=== PATIENT | female | born 1955 | race African-American/Black ===

== ENCOUNTER 2019-11-02 05:28 | Day surgery (SDC) | payer MEDICARE, OTHER ==
[~2019-11-02 05:28] MED LIST: ACETAMINOPHEN 325 MG TABLET PO PRN; CEFAZOLIN SODIUM 2 GM in DEXTROSE 5%-WATER 100 ML IV PRN; CELECOXIB 200 MG CAPSULE PO PRN; GABAPENTIN 100 MG CAPSULE PO PRN; LACTATED RINGERS 1000 ML IV PRN; LIDOCAINE 0.5% INJ-PF (5 MG/ML) 50 ML SDV SUBCUT PRN; ONDANSETRON HCL INJ/PF 4 MG/2 ML SDV IV PRN; OXYCODONE HCL SR 10 MG TABLET PO PRN; SCOPOLAMINE HYDROBROMIDE 1.5 MG PATCH.TD72 TD PRN; TRAMADOL HCL 50 MG TABLET PO PRN; TRANEXAMIC ACID INJ/PF 1,000 MG/10 ML SDV IV PRN; VANCOMYCIN HCL 1,000 MG in DEXTROSE 5%-WATER 250 ML IV PRN
[2019-11-02] MEDS ORDERED: CELECOXIB 200 MG CAPSULE ONE (05:29)
[2019-11-02] MEDS ORDERED: ACETAMINOPHEN 325 MG TABLET ONE (05:29)
[2019-11-02] MEDS ORDERED: GABAPENTIN 100 MG CAPSULE ONE (05:30)
[2019-11-02] MEDS ORDERED: ONDANSETRON HCL INJ/PF 4 MG/2 ML SDV ONE ×2 (05:30→07:03)
[2019-11-02] MEDS ORDERED: TRAMADOL HCL 50 MG TABLET ONE (05:30)
[2019-11-02] MEDS ORDERED: OXYCODONE HCL SR 10 MG TABLET PO ONE (05:30)
[2019-11-02] MEDS ORDERED: VANCOMYCIN HCL INJ 1000 MG VIAL ONE (06:49)
[2019-11-02] MEDS ORDERED: BUPIVACAINE HCL 0.25 % INJ/PF (2.5 MG/1 ML) 30 ML VIAL ONE (06:49)
[2019-11-02] MEDS ORDERED: LIDOCAINE 1% INJ-PF (10 MG/ML) 30 ML SDV ONE (06:49)
[2019-11-02] MEDS ORDERED: KETOROLAC TROMETHAMINE INJ/PF 30 MG/1 ML SDV ONE (06:49)
[2019-11-02] MEDS ORDERED: LIDOCAINE 2% INJ (20 MG/ML) 20 ML MDV ONE (06:59)
[2019-11-02] MEDS ORDERED: MIDAZOLAM 2 MG/2 ML INJ ONE (07:03)
[2019-11-02] MEDS ORDERED: PROPOFOL INJ 200 MG/20 ML VIAL IV ONE ×2 (07:03→09:06)
[2019-11-02] MEDS ORDERED: FENTANYL CITRATE INJ/PF 100 MCG/2 ML AMPUL ONE (07:03)
[2019-11-02] MEDS ORDERED: DEXAMETHASONE SOD PHOSPHATE INJ 4 MG/1 ML VIAL ONE (07:03)
[2019-11-02] MEDS ORDERED: SCOPOLAMINE HYDROBROMIDE 1.5 MG PATCH.TD72 ONE (07:09)
[2019-11-02] MEDS ORDERED: MORPHINE SULFATE 10 MG/ML INJ IV PRN ×2 (08:19→09:58)
[2019-11-02] MEDS ORDERED: FENTANYL CITRATE INJ/PF 100 MCG/2 ML AMPUL IV PRN ×3 (08:19)
[2019-11-02] MEDS ORDERED: DIPHENHYDRAMINE HCL 50 MG/ML VIAL IV PRN (08:19)
[2019-11-02] MEDS ORDERED: MEPERIDINE HCL/PF INJ 25 MG/1 ML DISP.SYRIN IV PRN (08:19)
[2019-11-02] MEDS ORDERED: ONDANSETRON HCL INJ/PF 4 MG/2 ML SDV IV PRN (08:19)
--- NOTE | 2019-11-02 09:30 | Operative Report ---
Operative Report DATE OF SURGERY: 11/02/19 PREOPERATIVE DIAGNOSIS: Severe left hip primary osteoarthritis POSTOPERATIVE DIAGNOSIS: Severe left hip primary osteoarthritis OPERATION: Left total hip arthroplasty SURGEON: PHIL EAGLE JR ANESTHESIA: Spinal COMPLICATIONS: None ESTIMATED BLOOD LOSS: 100 PROCEDURE: Implants: [employer] Taperloc micro-plasty size 10 femoral stem with lateral offset, a 50 mm G7 cup, and a 32 mm standard liner, a standard neck length 32 mm ceramic head BRIEF HISTORY: 63 year old female with severe degenerative arthritis of left hip, which has failed conservative treatment and has elected for a total hip arthroplasty. Risks include but are not limited to bleeding, infection, anesthesia, , injury to nerve or vessel, pain, scar, leg length inequality, dislocation, future surgery, and blood clots. Patient read through the pre-op counseling form and signed and solicited for surgery on their left hip. OPERATIVE PROCEDURE: Patient was brought to the operating room on and underwent spinal anesthesia. 2 grams of Ancef and 1 g of vancomycin was given. After proper anesthesia was obtained, patient was positioned, padded, prepped, and draped in the usual sterile fashion on the operating room table. Appropriate time out was performed. An anterior approach to the hip was undertaken with meticulous hemostasis through the deep interval. A capsulectomy was performed followed by exposure of the femoral neck. The femoral neck was cut in line with the femoral broach and the femoral head was removed. The acetabulum was then exposed with three retractors in an atraumatic fashion. Soft tissue and osteophytes were removed. Medialization reaming was performed followed by anatomic reaming up to accept a 50 mm acetabulum. Wound was irrigated with dilute betadyne solution and the 50 mm acetabulum was impacted into correct position and stability checked by manipulating the impaction handle which rocked the pelvis. A standard liner was impacted into the shell with good stability. Potential impinging osteophytes were removed. Attention was then directed toward the femur, which was exposed with two retractors in an atraumatic fashion. A bone hook was placed to carefully perform releases along the superior capsule until the femur was safely delivered through the wound. A boxing trainer was utilized followed by lateralization rasping and then broaching up to accept a 10 femur. With a standard offset neck and a standard head, stability was good in flexion and extension with equal leg yves gths. There was a slight amount of increased shuck and the decision was made to proceed with a lateral offset stem. The real lateral offset femur was impacted into a copiously irrigated femoral canal. A standard 0 mm 32 ceramic head was impacted on a clean dry femoral taper. The hip was irrigated and reduced, further irrigation with antibiotic solution, betadine solution, then antibiotic solution. Bleeders were coagulated with bovie cautery. The fascia was then closed with number 2 Stratofix; the subcutaneous tissue closed with interrupted inverted 2-0 monocryl then running 3-0 monocryl subcuticular. Dermabond skin glue was applied followed by a silver dressing. All needle sponge and instrument counts were correct. Patient was awakened from sedation anesthesia and taken to recovery room in good condition. Thank you, Phil Eagle, DO
[2019-11-02] MEDS: FENTANYL CITRATE INJ/PF 100 MCG/2 ML AMPUL ONE ×2 (09:35→09:40)
[2019-11-02] MEDS ORDERED: TRANEXAMIC ACID INJ/PF 1,000 MG/10 ML SDV ONE (09:54)
[2019-11-02] MEDS ORDERED: OXYCODONE HCL IR 5 MG TABLET PO PRN ×2 (09:57→09:58)
[2019-11-02] MEDS ORDERED: TRAMADOL HCL 50 MG TABLET PO PRN (09:59)
[2019-11-02] MEDS ORDERED: PANTOPRAZOLE SODIUM 20 MG TABLET.DR PO PRN (10:18)
[2019-11-02] MEDS ORDERED: DIPHENHYDRAMINE HCL 25 MG CAPSULE PO PRN (10:20)
[2019-11-02] MEDS ORDERED: ZOLPIDEM TARTRATE 5 MG TABLET PO PRN (10:20)
[2019-11-02] MEDS ORDERED: DOCUSATE SODIUM 100 MG CAPSULE PO PRN (10:23)
[2019-11-02] MEDS ORDERED: NORMAL SALINE 1000 ML 1,000 ML IV PRN (10:23)
[2019-11-02] MEDS ORDERED: ONDANSETRON 4 MG TAB.RAPDIS PO PRN (10:24)
--- NOTE | 2019-11-02 10:24 | RADIOLOGY REPORT (SQ) ---
EXAM DESCRIPTION: HIP LEFT AP/LATERAL COMPLETED DATE/TIME: 11/02/2019 10:10 am REASON FOR STUDY: post op M16.12 UNILATERAL PRIMARY OSTEOARTHRITIS, LEFT HIP COMPARISON: None. NUMBER OF VIEWS: Two views. TECHNIQUE: AP pelvis and additional frog-leg view of the left hip. LIMITATIONS: None. FINDINGS: MINERALIZATION: Normal. LEFT HIP: Status post left FAUSTO. The hardware is in anatomic alignment. There is no periprosthetic f racture. RIGHT HIP: Osteoarthrosis of the femoroacetabular joint. There is no fracture or dislocation. PUBIS AND ISCHIUM: The ilioischial and iliopectineal lines are intact. There is no diastasis of the pubic symphysis. PELVIS: No fracture. SACRUM: The sacrum is obscured by overlying bowel. LOWER LUMBAR SPINE: Limited evaluation. SOFT TISSUES: Subcutaneous emphysema lateral to the left femur. OTHER: No other findings. IMPRESSION: Status post left FAUSTO with expected immediate postoperative findings. TECHNICAL DOCUMENTATION: JOB ID: [id number] 2010 [employer]- All Rights Reserved Reading location - IP/workstation name: [email or web address]
[2019-11-02] MEDS: KETOROLAC TROMETHAMINE INJ/PF 30 MG/1 ML SDV IV SCH ×3 (14:20→21:03)
[2019-11-02] MEDS: ACETAMINOPHEN 325 MG TABLET PO SCH ×2 (14:42→21:22)
[2019-11-02] MEDS: CEFAZOLIN SODIUM 2 GM in DEXTROSE 5%-WATER 100 ML IV SCH ×2 (14:42→21:02)
--- NOTE | 2019-11-02 15:44 | RADIOLOGY REPORT (SQ) ---
EXAM DESCRIPTION: NO CHG FLUORO; HIP IN OPERATING RM COMPLETED DATE/TIME: 11/02/2019 3:02 pm; 11/02/2019 3:03 pm REASON FOR STUDY: LEFT HIP TOTAL ARTHROPLASTY ASSISTED WITH FLUORO IN OR COMPARISON: None. FLUOROSCOPY TIME: No document fluoro time 2 Images saved to PACS LIMITATIONS: None. PROCEDURE: Left hip arthroplasty. FINDINGS: Images from fluoro document left hip arthroplasty in progress. IMPRESSION: Left hip arthroplasty in progress. Refer to operative note for further information. COMMENT: PQRS 6045F: Fluoroscopy time of the procedure is documented in the report. TECHNICAL DOCUMENTATION: JOB ID: [id number] 2010 [employer]- All Rights Reserved Reading location - IP/workstation name: [email or web address]
--- NOTE | 2019-11-02 15:44 | RADIOLOGY REPORT (SQ) ---
EXAM DESCRIPTION: NO CHG FLUORO; HIP IN OPERATING RM COMPLETED DATE/TIME: 11/02/2019 3:02 pm; 11/02/2019 3:03 pm REASON FOR STUDY: LEFT HIP TOTAL ARTHROPLASTY ASSISTED WITH FLUORO IN OR COMPARISON: None. FLUOROSCOPY TIME: No document fluoro time 2 Images saved to PACS LIMITATIONS: None. PROCEDURE: Left hip arthroplasty. FINDINGS: Images from fluoro document left hip arthroplasty in progress. IMPRESSION: Left hip arthroplasty in progress. Refer to operative note for further information. COMMENT: PQRS 6045F: Fluoroscopy time of the procedure is documented in the report. TECHNICAL DOCUMENTATION: JOB ID: [id number] 2010 [employer]- All Rights Reserved Reading location - IP/workstation name: [email or web address]
[2019-11-02] MEDS ORDERED: ALBUTEROL SULFATE 0.042% NEB (1.25 MG/3 ML) AMPUL NEB PRN (15:55)
[2019-11-02] MEDS ORDERED: (PENDING PHARMACY ID) (Levalbuterol Tartrate [Xopenex Hfa] 2 PUFF) IN PRN (15:55)
[2019-11-02] MEDS: GABAPENTIN 100 MG CAPSULE PO SCH (17:16)
[2019-11-02] MEDS ORDERED: ALBUTEROL SULFATE HFA (90 MCG/PUFF) 8 GM MDI IH PRN (21:30)
[2019-11-03] MEDS: ACETAMINOPHEN 325 MG TABLET PO SCH (06:14)
[2019-11-03] MEDS: KETOROLAC TROMETHAMINE INJ/PF 30 MG/1 ML SDV IV SCH (06:50)
--- NOTE | 2019-11-03 07:39 | PDOC PROGRESS REPORT ---
Subjective Progress Note for:: 11/03/19 Subjective:: The patient is doing well this AM. Pain is present but not out of proportion and well controlled on their current medications. There are no new symptoms or overnight events. Overall they are felling well without complaints. They deny chest pain, shortness of breath or motor or sensory loss. Reason For Visit: M16.12 UNILATERAL PRIMARY OSTEOAR Physical Exam Vital Signs: Temp Pulse Resp BP Pulse Ox 97.4 F 68 18 115/72 100 11/03/19 03:49 11/03/19 03:49 11/03/19 03:49 11/03/19 03:49 11/03/19 03:49 Intake & Output 11/02/19 11/03/19 11/04/19 06:59 06:59 06:59 Intake Total 0 2520 Output Total 800 Balance 0 1720 Weight 109.32 kg 114.8 kg Physical Exam: No acute distress alert and orient x3 Left lower extremity -Pulses 2+ distally -Compartments soft -Wound clean dry and intact no drainage, appropriate appearance for postop day 1 -Sensation grossly intact to L3-4-5 S1 -Motor grossly intact to EHL TA gastroc and quad - Able to perform quad extension and elevate heel off of bed. Results Laboratory Results: 11/02/19 06:55 11/02/19 06:55 Blood Type A POSITIVE Antibody Screen NEGATIVE Impressions: Fluoroscopy 11/02/19 00:00 IMPRESSION: Left hip arthroplasty in progress. Refer to operative note for further information. Hip X-Ray 11/02/19 00:00 IMPRESSION: Left hip arthroplasty in progress. Refer to operative note for further information. Assessment & Plan - Diagnosis (1) History of total left hip arthroplasty Is this a current diagnosis for this admission?: Yes Plan: - 2 doses of Ancef postoperatively q 8 hours to complete 24 hours perioperatively -Weightbearing as tolerated, no precautions, encourage out of bed CINDY for ADL training - PT/OT - Keep knee extended in bed, rolled towel under the ankle to obtain full extension -aspirin 325 daily for DVT prophylaxis for 6 weeks -multimodal pain management to avoid excessive narcotics, including gabapentin, tramadol, Toradol, acetaminophen. -Dressing should not be removed for 7 to 10 days until seen in the office -May shower with the dressing intact, if it starts to come off she should not get the incision wet. -I would like to follow the patient my office within the next 7 to 10 days at [address] [place] [address]. in [place] office #: [phone] - Time Time Spent with patient: Less than 15 minutes
[2019-11-03] MEDS ORDERED: CHLORTHALIDONE 25 MG TABLET PO SCH (08:00)
[2019-11-03 08:07] VITALS: BP 111/62
[2019-11-03] MEDS ORDERED: AMLODIPINE BESYLATE 5 MG TABLET PO SCH (10:00)
[2019-11-03] MEDS ORDERED: POLYETHYLENE GLYCOL 3350 POWDER 17 GM/1 PACKET PO SCH (10:00)
[2019-11-03] MEDS ORDERED: VITAMIN E (DL, ACETATE) 400 UNIT CAPSULE PO SCH (10:00)
[2019-11-03] MEDS ORDERED: LORATADINE 10 MG TABLET PO SCH (10:00)
[2019-11-03] MEDS ORDERED: ASPIRIN 325 MG TABLET, ENT COATED PO SCH (10:00)
[2019-11-03] MEDS ORDERED: CHOLECALCIFEROL (D3) 1,000 UNIT (25 MCG) TABLET PO SCH (10:00)
[2019-11-03] MEDS ORDERED: (PENDING PHARMACY ID) (Vitamin E [Vitamin E] 400 UNIT) PO SCH (10:00)
[2019-11-03] MEDS ORDERED: LISINOPRIL 10 MG TABLET PO SCH (10:00)
[2019-11-03] MEDS ORDERED: (PENDING PHARMACY ID) (Lisinopril [Zestril] 40 MG) PO SCH (10:00)
[2019-11-03] MEDS ORDERED: (PENDING PHARMACY ID) (Cholecalciferol (Vitamin D3) [Vitamin D3] 2,000 UNIT) PO SCH (10:00)
[2019-11-03] MEDS ORDERED: (PENDING PHARMACY ID) (Fluticasone Propionate [Flovent Diskus] 1 SPRAY) IH SCH (10:00)
[2019-11-03] MEDS ORDERED: METHOCARBAMOL 500 MG TABLET PO SCH (10:00)
[2019-11-03] MEDS: GABAPENTIN 100 MG CAPSULE PO SCH (10:35)
[2019-11-04] MEDS ORDERED: CELECOXIB 200 MG CAPSULE PO SCH (10:00)
--- NOTE | 2019-11-08 15:08 | PDOC DISCHARGE SUMMARY ---
Impression - Admit/DC Date/PCP Discharge Date: 11/03/19 - Discharge Diagnosis (1) History of total left hip arthroplasty Is this a current diagnosis for this admission?: Yes - Assessment Summary: Ms. Bhatt is a very pleasant 83-year-old male who presented to my clinic with chronic left pain that is been going on for over a year. After thorough work-up and attempts at conservative treatment including activity modification and [id number] pain medication, they were having severe difficulty with ambulation and was over the counter pain medication for daily activity. They found the pain debilitating and decreasing thier quality of life as they were unable to perform activities of daily living such as ambulating short distances and getting in and out of the car. After a thorough work-up including x-rays that demonstrated joint space narrowing, vjmu-va-reue contact, subchondral sclerosis, and osteophyte formation as well as discussing risks and benefits and other treatment options, the patient elected to proceed with a left total hip arthroplasty. They were brought to the operating room on 11/02/2019 and underwent a left total hip arthroplasty and tolerated procedure very well with out complication. They were then admitted to the hospital floor for postoperative medical management, monitoring, and pain control. On postoperative day #1 they were ambulating well with physical therapy, to the degree that they approved them for discharge home. They were discharged home on 11/03/2019. They had no acute events or complications over the course of their stay. All detailed instructions and prescriptions were provided to the patient prior to admission on the year prior office visit. - Additional Information Resuscitation Status: Full Code Discharge Diet: As Tolerated, Diabetic Discharge Activity: Activity As Tolerated, No Driving, Keep Legs Elevated, No Lifting/Push/Pulling, Slowly Increase Activity, No tub bath, Walk Frequently Referrals: SANDY EAGLE JR, DO [ACTIVE PROVISIONAL STAFF] - 11/13/19 1:25 pm Home Medications: Albuterol Sulfate [Ventolin 0.042% Neb 1.25 mg/3 mL Ampul] 3 ml IN Q8HP PRN 10/30/19 Amlodipine Besylate [Norvasc 5 mg Tablet] 5 mg PO DAILY 10/30/19 Chlorthalidone [Hygroton 25 mg Tablet] 25 mg PO QAM 10/30/19 Cholecalciferol (Vitamin D3) [Vitamin D3] 2,000 unit PO DAILY 10/30/19 Clotrimazole/Betamethasone Dip [Clotrimazole-Betamethasone Lot] 1 dose TOP PRN PRN 10/30/19 Colchicine 0.6 mg PO BIDP PRN 10/30/19 Famotidine [Pepcid] 20 mg PO BIDP PRN 10/30/19 Fluticasone Propionate [Flovent Diskus] 1 inh PO QHS 10/30/19 Levalbuterol Tartrate [Xopenex Hfa] 2 puff IN Q6HP PRN 10/30/19 Lisinopril [Zestril] 40 mg PO DAILY 10/30/19 Loratadine [Claritin] 10 mg PO DAILY 10/30/19 Methocarbamol 500 mg PO DAILY 10/30/19 Tramadol HCl [Ultram] 1 - 2 tab PO TIDP PRN 10/30/19 Vitamin E 400 unit PO DAILY 10/30/19 Acetaminophen [Tylenol 325 mg Tablet] 975 mg PO Q8 tablet 11/03/19 Aspirin [Ecotrin 325 mg EC Tablet] 325 mg PO DAILY tabec 11/03/19 Celecoxib [Celebrex 200 mg Capsule] 200 mg PO DAILY capsule 11/03/19 Gabapentin [Neurontin 100 mg Capsule] 100 mg PO BID capsule 11/03/19 Methocarbamol [Robaxin 500 mg Tablet] 500 mg PO DAILY tablet 11/03/19 Oxycodone HCl [Oxy-Ir 5 mg Tablet] 5 mg PO Q4HP PRN tablet 11/03/19 Oxycodone HCl [Oxy-Ir 5 mg Tablet] 10 mg PO Q4HP PRN tablet 11/03/19 Tramadol HCl [Ultram 50 mg Tablet] 50 mg PO Q4HP PRN tablet 11/03/19 History of Present Illiness History of Present Illness: OWEN ROWLEY is a 63 year old female Physical Exam Vital Signs: Temp Pulse Resp BP Pulse Ox 98.4 F 81 18 111/62 100 11/03/19 09:59 11/03/19 09:59 11/03/19 09:59 11/03/19 09:59 11/03/19 09:59 Results Laboratory Results: Potassium 3.6 mmol/L (3.6-5.0) 11/02/19 06:55 Blood Type A POSITIVE 11/02/19 06:55 Antibody Screen NEGATIVE 11/02/19 06:55 Impressions: Fluoroscopy 11/02/19 00:00 IMPRESSION: Left hip arthroplasty in progress. Refer to operative note for further information. Hip X-Ray 11/02/19 00:00 IMPRESSION: Status post left FAUSTO with expected immediate postoperative findings. Hip X-Ray 11/02/19 00:00 IMPRESSION: Left hip arthroplasty in progress. Refer to operative note for fu rther information. Stroke Is this a Stroke Patient?: No Acute Heart Failure - Is this a Heart Failure Patient?: No
== END 2019-11-03 12:38 | disposition home health service (06) ==
LOC: OROUT 05:28 → 5 14:01 → OROUT 11-03 12:38
PROVIDERS: ATTEND Orthopaedic Surgery
DX: M16.12 Unilateral primary osteoarthritis, left hip (principal); Z79.899 Other long term (current) drug therapy; Z79.51 Long term (current) use of inhaled steroids; I10 Essential (primary) hypertension; Z79.82 Long term (current) use of aspirin; Z79.891 Long term (current) use of opiate analgesic
CPT/HCPCS: 86900; 86901; 36415; 86850; 84132; 73502; 73501; 97530 ×2; 97110 ×2; 97116 ×2; 97163; 01214; 27130; A9270 ×20; J2250; J3490 ×4; J0690; J1100; J3010; J1885; J2405; J7060 ×2; J7030; J2704; J3370